=== PATIENT | female | born 1940 ===

== ENCOUNTER 2019-12-11 07:10 | Inpatient (IN) | payer OTHER ==
[~2019-12-11] VITALS: Ht 144.8 cm; Wt 58.1 kg
[~2019-12-11 07:10] MED LIST: GABAPENTIN100 M2 PO; RIVASTIGMINE1.5 MG PO; TOPROL XL25 M1 PO
[2019-12-13] MEDS ORDERED: OXYCONTIN10 M1 PO (08:18)
[2019-12-13] MEDS ORDERED: INTEGRA PLUS C1 EACH PO (08:18)
[2019-12-13] MEDS ORDERED: XARELTO10 MG PO (08:18)
== END 2019-12-13 17:17 | DRG 470 ==
LOC: O/R 07:10 → SURH 07:10 → RECOVERY 14:40 → SURH 18:44
PROVIDERS: ADMIT Orthopaedic Surgery Sports Medicine
PROC: 0SRD0J9 Replacement of Left Knee Joint with Synthetic Substitute, Cemented, Open Approach (ICD-10-PCS; principal; 2019-12-11 15:30)
DX: M17.12 Unilateral primary osteoarthritis, left knee (principal); F41.8 Other specified anxiety disorders